=== PATIENT | male | born 1990 | race Caucasian/White ===

== ENCOUNTER 2016-03-26 08:14 | Emergency (ER) | payer SELFPAY ==
[2016-03-26 08:27] VITALS: BP 115/93
[2016-03-26] MEDS ORDERED: ZOFRAN IV ONE (09:19)
[2016-03-26] MEDS ORDERED: TORADOL IV ONE (09:19)
[2016-03-26] MEDS ORDERED: NACL 0.9% 1000 ML IV ONE (09:19)
[2016-03-26 09:42] LABS: Basophils % (Auto) 0.5 % (0.0-1.8); Hemoglobin 15.2 gm/dl (11.8-15.2); Mean Corpuscular HGB Conc 34 % (32-34); Mean Corpuscular Hemoglobin 28 pg (28-32); Mean Corpuscular Volume 83 fl (84-94); Platelet Count 165 K/mm3 (140-440); Red Blood Count 5.43 M/mm3 (3.65-5.03); Red Cell Distribution Width 13.5 % (13.2-15.2); White Blood Count 8.8 K/mm3 (4.5-11.0)
--- NOTE | 2016-03-26 09:44 | Emergency Department Report ---
HPI - General Chief Complaint: Nausea/Vomiting/Diarrhea Time Seen by Provider: 03/26/16 08:52 - HPI HPI: Chief complaint: Cough, fever, nausea, vomiting and aching HPI: Patient is 25-year-old male who smokes cigarettes began having body aches fevers and chills since yesterday coughing up yellow sputum. Patient began vomiting this morning. Patient states he is slightly dizzy on standing. Patient took a prednisone tablet and used his girlfriend's inhaler. Patient states he had asthma as a child. Mode of arrival: private car Source: Patient and girlfriend Began: Yesterday morning Duration: One day Context: In states he did not take his flu shot Quality: Aching Severity: 10 out of 10 Improved with: Patient did not have anything to take for his temperature 102 Worsened with: Nothing Associated signs and symptoms: See above ED Past Medical Hx - Past Medical History Hx Asthma: Yes - Surgical History Past Surgical History?: No - Social History Smoking Status: Current Every Day Smoker Substance Use Type: Alcohol - Medications Home Medications: Home Medications Medication Instructions Recorded Confirmed Last Taken Type Benzonatate [Tessalon Perles] 100 mg PO Q8HR #14 capsule 03/26/16 Unknown Rx Ondansetron [Zofran Odt] 4 mg PO Q4H PRN #5 tab.rapdis 03/26/16 Unknown Rx ED Review of Systems ROS: Stated complaint: ASTHMATIC/CHEST PAINS/EMESIS/ Other details as noted in HPI ROS Constitutional: fever ENT: No uri symptoms Cardiovascular: No chest pain Respiratory: No sob GI: No diarrhea : No dysuria frequency or urgency, Skin: No rash Neuro: No focal weakness or numbness Psych: No depression Roberto/lymph: No edema Physical Exam - Physical Exam Vital Signs: Vital Signs 03/26/16 08:23 Temperature 97.7 F Pulse Rate 92 H Respiratory 18 Rate Blood Pressure 115/93 O2 Sat by Pulse 100 Oximetry Physical Exam: GENERAL: The patient is well-developed well-nourished. Patient is orthostatic. HEENT: Normocephalic. Atraumatic. Extraocular motions are intact. Patient has moist mucous membranes. NECK: Supple. No meningitic signs are noted. There is no adenopathy noted. CHEST/LUNGS: Clear to auscultation. There is no respiratory distress noted. HEART/CARDIOVASCULAR: Regular. There is no tachycardia. There is no gallop rub or murmur. ABDOMEN: Abdomen is soft, nontender. Patient has normal bowel sounds. There is no abdominal distention. SKIN: There is no rash. There is no edema. There is no diaphoresis. Skin feels warm repeat temperature was 100.8 orally. NEURO: The patient is awake, alert, and oriented. The patient is cooperative. The patient has no focal neurologic deficits. The patient has normal speech. MUSCULOSKELETAL: There is no tenderness or deformity. There is no limitation range of motion. There is no evidence of acute injury. ED Course Vital Signs 03/26/16 08:23 Temperature 97.7 F Pulse Rate 92 H Respiratory 18 Rate Blood Pressure 115/93 O2 Sat by Pulse 100 Oximetry - Reevaluation(s) Reevaluation #1: 03/26/16 10:34 Patient slightly orthostatic and was given 2 L of normal saline and some Zofran and is now hungry. Patient given 650 of Tylenol for his headache. ED Medical Decision Making - Lab Data Result diagrams: 03/26/16 09:27 03/26/16 09:27 - Radiology Data interpreted by me: Chest x-ray shows no acute process. Critical care attestation.: If time is entered above; I have spent that time in minutes in the direct care of this critically ill patient, excluding procedure time. ED Disposition Clinical Impression: Mild dehydration Upper respiratory infection Qualifiers: URI type: unspecified URI Qualified Code(s): J06.9 - Acute upper respiratory infection, unspecified Nausea and vomiting Qualifiers: Vomiting type: unspecified Vomiting Intractability: non-intractable Qualified Code(s): R11.2 - Nausea with vomiting, unspecified Disposition: DISCHARGED TO HOME OR SELFCARE Is pt being admited?: No Does the pt Need Aspirin: No Condition: Stable Instructions: Upper Respiratory Infection (ED) Additional Instructions: Tylenol and/or Motrin for fever and aches. [id number] decongestants for nasal congestion. Prescriptions: Benzonatate [Tessalon Perles] 100 mg PO Q8HR #14 capsule Ondansetron [Zofran Odt] 4 mg PO Q4H PRN #5 tab.rapdis PRN Reason: Nausea And Vomiting Referrals: [facility] [Provider Group] - 3-5 Days Time of Disposition: 10:42
[2016-03-26 09:55] LABS: Anion Gap 23 mmol/L; Blood Urea Nitrogen 12 mg/dL (9-20); Calcium 9.2 mg/dL (8.4-10.2); Carbon Dioxide 21 mmol/L (22-30); Chloride 98.1 mmol/L (98-107); Glucose 87 mg/dL (75-100); Potassium 3.9 mmol/L (3.6-5.0); Sodium 138 mmol/L (137-145)
[2016-03-26] MEDS ORDERED: NACL 0.9% 1000 ML 1,000 ML IV ONE (09:55)
[2016-03-26] MEDS ORDERED: TYLENOL ONE (10:30)
[2016-03-26] MEDS ORDERED: TYLENOL PO ONE (10:35)
--- NOTE | 2016-03-26 10:49 | XRay Report ---
CHEST 2 VIEWS INDICATION: Cough. COMPARISON: None similar at this institution. FINDINGS: PA and lateral chest radiographs demonstrate normal cardiomediastinal silhouette. Clear lungs. Intact bones. CONCLUSION: No acute disease in the chest. Thank you for the opportunity to participate in this patient's care.
== END 2016-03-26 10:52 | disposition home or self-care (01) ==
LOC: ED 08:14
DX: E86.0 Dehydration (principal); J06.9 Acute upper respiratory infection, unspecified; R11.2 Nausea with vomiting, unspecified; J45.909 Unspecified asthma, uncomplicated; F17.200 Nicotine dependence, unspecified, uncomplicated
CPT/HCPCS: 36415; 71020; 80048; 85025; 96361; 96374; 96375; 99284; J1885; J2405; J7030